=== PATIENT | male | born 1950 | race Caucasian/White ===

== ENCOUNTER 2019-01-15 09:05 | Day surgery (SDC) | payer OTHER ==
[2019-01-11 14:40] VITALS: BMI 30.7
[2019-01-15] MEDS ORDERED: PROPOFOL 20 ML ONE ×2 (09:51)
[2019-01-15 11:13] VITALS: TEMP 97.7
[2019-01-15 11:56] VITALS: BP 107/74; PULSE 62
--- NOTE | 2019-01-17 13:04 | PATH ---
Surgical Pathology Report Patient Name: NÉSTOR WARD [facility]. Rec. #: [id number] /Age/Gender: 1950 (Age: 68) / M Account: [id number] Location: [facility] Taken: 01/15/2019 Received: 01/15/2019 Reported: 01/17/2019 Physicians: George Levy M.D. Specimen(s) Received A: BX POLYP RIGHT COLON B: BX POLYP LEFT COLON Clinical History History of polyps Postoperative diagnosis: Colon polyps, diverticulosis Final Diagnosis A. RIGHT COLON, POLYP, BIOPSY: TUBULAR ADENOMA. B. LEFT COLON, POLYP, BIOPSY: HYPERPLASTIC POLYP. Electronically Signed Luly Lal M.D. Gross Description A. Received in formalin, labeled "biopsy polyp right colon" are 2 wise, irregular portions of soft tissue measuring 0.1 and 0.5 cm. in greatest dimension. The specimens are submitted in toto in one cassette. B. Received in formalin, labeled "biopsy polyp left colon" is a wise, irregular portion of soft tissue measuring 0.3 cm. in greatest dimension. The specimen is submitted in toto in one cassette. DL/01/16/2019 saudi01/16/2019
== END 2019-01-15 11:55 | disposition home or self-care (01) ==
LOC: FASU-ENDO 09:05
PROVIDERS: ATTEND Internal Medicine Gastroenterology
PROC: 0DBM8ZX Excision of Descending Colon, Via Natural or Artificial Opening Endoscopic, Diagnostic (ICD-10-PCS; 2019-01-15)
PROC: 0DBK8ZX Excision of Ascending Colon, Via Natural or Artificial Opening Endoscopic, Diagnostic (ICD-10-PCS; principal; 2019-01-15 10:37)
DX: Z86.010 Personal history of colon polyps (principal); D12.2 Benign neoplasm of ascending colon; K63.5 Polyp of colon; K57.30 Diverticulosis of large intestine without perforation or abscess without bleeding
CPT/HCPCS: 88305-TC

== ENCOUNTER 2023-03-31 08:03 | Day surgery (SDC) | payer OTHER ==
[2023-03-24 10:53] VITALS: BMI 32.4
[2023-03-31 10:01] VITALS: BP 128/81; PULSE 87; RESP 18; TEMP 97
== END 2023-03-31 11:00 | disposition home or self-care (01) ==
LOC: FASU-ENDO 08:03
PROVIDERS: ATTEND Internal Medicine Gastroenterology
PROC: 0DJD8ZZ Inspection of Lower Intestinal Tract, Via Natural or Artificial Opening Endoscopic (ICD-10-PCS; principal; 2023-03-31 09:23)
DX: Z12.11 Encounter for screening for malignant neoplasm of colon (principal); K57.30 Diverticulosis of large intestine without perforation or abscess without bleeding; Z86.010 Personal history of colon polyps